=== PATIENT | male | born 1955 | race Caucasian/White ===

== ENCOUNTER 2019-10-29 11:43 | Emergency (ER) | payer MEDICARE ==
[~2019-10-29] VITALS: Ht 185.4 cm; Wt 72.6 kg
[2019-10-29] MEDS ORDERED: ASPIRIN325 MG PO (11:58)
[2019-10-29] MEDS ORDERED: METFORMIN HCL1000 MG PO (12:00)
[2019-10-29] MEDS ORDERED: PRILOSEC OTC20 MG PO (12:00)
[2019-10-29] MEDS ORDERED: PAXIL20 MG PO (12:01)
[2019-10-29] MEDS ORDERED: SIMVASTATIN20 MG PO (12:01)
[2019-10-29] MEDS ORDERED: FLOMAX0.4 MG PO (12:02)
[2019-10-29] MEDS ORDERED: TRAZODONE HCL100 MG PO (12:02)
[2019-10-29] MEDS ORDERED: VICTOZA 2-0.6 MG/0.1 SUB-Q (12:03)
[2019-10-29] MEDS ORDERED: MILK OF MA400 MG/5 M PO (12:04)
[2019-10-29] MEDS ORDERED: ACETAMINOPHEN500 MG PO (12:04)
== END 2019-10-29 14:09 | disposition home or self-care (01) ==
LOC: ED 11:43
DX: S83.91XA Sprain of unspecified site of right knee, initial encounter (principal); S20.212A Contusion of left front wall of thorax, initial encounter; S00.01XA Abrasion of scalp, initial encounter; W07.XXXA Fall from chair, initial encounter; I10 Essential (primary) hypertension; F32.9 Major depressive disorder, single episode, unspecified; E11.9 Type 2 diabetes mellitus without complications; K21.9 Gastro-esophageal reflux disease without esophagitis; F17.200 Nicotine dependence, unspecified, uncomplicated; Z79.82 Long term (current) use of aspirin; Z79.899 Other long term (current) drug therapy; Z79.84 Long term (current) use of oral hypoglycemic drugs
CPT/HCPCS: 70450; 72125; 99284-25; 99406

== ENCOUNTER 2020-04-18 10:59 | Emergency (ER) | payer MEDICARE, OTHER ==
[~2020-04-18] VITALS: Ht 185.4 cm; Wt 72.6 kg
[~2020-04-18 10:59] MED LIST: ACETAMINOPHEN500 MG PO; ASPIRIN325 MG PO; FLOMAX0.4 MG PO; METFORMIN HCL1000 MG PO; MILK OF MA400 MG/5 M PO; PAXIL20 MG PO; PRILOSEC OTC20 MG PO; SIMVASTATIN20 MG PO; TRAZODONE HCL100 MG PO; VICTOZA 2-0.6 MG/0.1 SUB-Q
[2020-04-18] MEDS ORDERED: ATENOLOL50 MG PO (11:14)
[2020-04-18] MEDS ORDERED: LOSARTAN POTAS100 MG PO (11:15)
== END 2020-04-18 12:42 | disposition home or self-care (01) ==
LOC: ED 10:59
DX: E11.65 Type 2 diabetes mellitus with hyperglycemia (principal); I10 Essential (primary) hypertension; F32.9 Major depressive disorder, single episode, unspecified; K21.9 Gastro-esophageal reflux disease without esophagitis; Z87.891 Personal history of nicotine dependence; Z79.899 Other long term (current) drug therapy; Z79.82 Long term (current) use of aspirin; Z79.84 Long term (current) use of oral hypoglycemic drugs
CPT/HCPCS: 80053; 81001; 85025; 96360; 99285-25; J7040